=== PATIENT | male | born 1975 | race Two or more races ===

== ENCOUNTER 2018-07-07 10:33 | Inpatient (IN) | payer BC ==
[2018-07-07 14:31] VITALS: BMI 20.2
--- NOTE | 2018-07-07 17:02 | CONSULT ---
[facility] Psychiatric Consult - Data Date of interview: 07/07/18 Admission source: [facility] Identifying data: Patient is a 43 year old male, father of one, domiciled, and employed as a [employer]. This is one of multiple admissions for patient. Patient seeking detox for alcohol and cocaine dependence. Substance Abuse History: Alcohol/beer- 4-5 beers daily. Cocaine- 2 bags daily. CIgarette- 1/2 pack daily Psychiatric History: Sheet Tailer called to speak to patient in [facility] due to risk of suicidality. Patient denies h/o psychiatric hospitalization, outpatient care, and suicide attempt. Pt. is currently in the methadone program at the [facility] in the [place], [place]. Patient denies psychotic symptoms. No psychosis noted. Patient stated " I am currently going through a phase of feeeling down because i am using and i am here to get help." Patient reports poor sleep and a lost of 7-10 pounds in 2-3 months. He denies amotivation, anhedonia, and suicidal ideation. HIs protective factors is his mother, , and daughter. Patient denies urges or thoughts to hurt himself or others. Patient is stable for admission to detox. Physical/Sexual Abuse/Trauma History: denies. Mental Status Exam - Mental Status Exam Alert and Oriented to: Time, Place, Person Cognitive Function: Good Patient Appearance: Well Groomed Mood: Hopeful, Euthymic Affect: Appropriate, Mood Congruent Patient Behavior: Appropriate, Cooperative Speech Pattern: Clear, Appropriate Voice Loudness: Normal Thought Process: Intact, Goal Oriented Hallucinations: Denies Suicidal Ideation: Denies Homicidal Ideation: Denies Insight/Judgement: Poor Sleep: Poorly Appetite: Fair Muscle strength/Tone: Normal Gait/Station: Normal Psychiatric Findings - Problem List (Gates 1, 2,3) (1) Substance induced mood disorder Current Visit: Yes Status: Acute (2) Alcohol dependence Current Visit: Yes Status: Acute (3) Cocaine dependence Current Visit: Yes Status: Acute - Initial Treatment Plan Initial Treatment Plan: Psychoeducation provided. Detoxification in progress. Patient informed that melatonin 5mg will be ordered for insomnia.
--- NOTE | 2018-07-07 19:09 | HP ---
CIWA Score Nausea/Vomitin-No Nausea/No Vomiting Muscle Tremors: 4-Moderate,w/Arms Extend Anxiety: 2 Agitation: 0-Normal Activity Paroxysmal Sweats: 1-Minimal Palms Moist Orientation: 1-Uncertain about Date Tacttile Disturbances: 0-None Auditory Disturbances: 0-None Visual Disturbances: 0-None Headache: 2-Mild CIWA-Ar Total Score: 10 - Admission Criteria OASAS Guidelines: Admission for Medically Managed Detox: Requires at least one of the followin. CIWA greater than 12 2. Seizures within the past 24 hours 3. Delirium tremens within the past 24 hours 4. Hallucinations within the past 24 hours 5. Acute intervention needed for co occurring medical disorder 6. Acute intervention needed for co occurring psychiatric disorder 7. Severe withdrawal that cannot be handled at a lower level of care (continued vomiting, continued diarrhea, abnormal vital signs) requiring intravenous medication and/or fluids 8. Admission ROS [facility] - [facility] Chief Complaint: Having alcohol and Xanax withdrawal. Here for detox. Allergies/Adverse Reactions: Allergies Allergy/AdvReac Type Severity Reaction Status Date / Time No Known Allergies Allergy Verified 12/31/15 12:00 History of Present Illness: Alcohol use began at age 20. Cocaine use began at age 20. Nicotine use began at age 14. Heroin use began at age 16. Has been on Methadone maintenance x 11 years. Benzodiazepine use began at age 40. Denies hx of seizures, blackouts or overdose. Longest length of sobriety is 5 years. Search Terms: Nicole Mantilla, 1975 Search Date: 07/07/2018 07:01:46 PM The Drug Utilization Report below displays all of the controlled substance prescriptions, if any, that your patient has filled in the last twelve months. The information displayed on this report is compiled from pharmacy submissions to the Department, and accurately reflects the information as submitted by the pharmacies. This report was requested by: Lynn Arizmendi | Reference #: [id number] There are no results for the search terms that you entered. Exam Limitations: No Limitations - Ebola screening Have you traveled outside of the country in the last 21 days: No Have you had contact with anyone from an Ebola affected area: No Have you been sick,other than usual withdrawal symptoms: No Do you have a fever: No - Review of Systems Constitutional: Diaphoresis (Some sweating.), Changes in sleep (Difficulty falling asleep.) EENT: reports: Blurred Vision (Wears glasses) Respiratory: reports: No Symptoms reported Cardiac: reports: No Symptoms Reported GI: reports: Poor Appetite : reports: No Symptoms Reported Musculoskeletal: reports: No Symptoms Reported Integumentary: reports: No Symptoms Reported Neuro: reports: Headache (Mild) Endocrine: reports: Increased Thirst Hematology: reports: No Symptoms Reported Psychiatric: reports: Judgement Intact, Mood/Affect Appropiate, Orientated x3 ( Off date by 1 day), Anxious Patient History - Patient Medical History Hx Anemia: No Hx Asthma: No Hx Chronic Obstructive Pulmonary Disease (COPD): No Hx Cardiac Disorders: No Hx Hypertension: No Hx Hypercholesterolemia: No HX Cerebrovascular Accident: No Hx Seizures: No Hx Diabetes: No Hx Gastrointestinal Disorders: No Hx Genitourinary Disorders: No Hx Sexually Transmitted Disorders: No Hx Renal Disease (ESRD): No Hx Thyroid Disease: No Hx Human Immunodeficiency Virus (HIV): No (NEGATIVE HX) Hx Hepatitis C: Yes ("BUT INACTIVE") Hx Depression: Yes (NOT CURRENTLY ON MED) Hx Suicide Attempt: No (DENIES) Hx Bipolar Disorder: No Hx Schizophrenia: No - Patient Surgical History Past Surgical History: Yes Hx Orthopedic Surgery: Yes (Fx mandible IN 2008) Anesthesia Reaction: No - PPD History Previous Implant?: Yes Documented Results: Negative w/proof Implanted On Prior R Admission?: Yes Date: 01/02/16 PPD to be Administered?: Yes - Smoking Cessation Smoking history: Current every day smoker Have you smoked in the past 12 months: Yes Aproximately how many cigarettes per day: 10 Cigars Per Day: 0 Hx Chewing Tobacco Use: No Initiated information on smoking cessation: Yes 'Breaking Loose' booklet given: 07/07/18 - Substance & Tx. History Hx Alcohol Use: Yes Hx Substance Use: Yes Substance Use Type: Alcohol, Cocaine, Heroin Hx Substance Use Treatment: Yes (detox, rehab, currently on MMTP program) - Substances Abused Alcohol Route: Oral Frequency: Daily Amount used: 1 pint of [place], 12 -12oz cans of beer Age of first use: 20 Date of Last Use: 07/06/18 Alprazolam (Xanax) Route: Oral Frequency: 1-2 times per week Amount used: 2mg Age of first use: 40 Date of Last Use: 07/04/18 Cocaine Route: Injection Frequency: 3-6 times per week Amount used: $60 Age of first use: 20 Date of Last Use: 07/04/18 Family Disease History - Family Disease History Family Disease History: Diabetes: Mother (HTN & DEPRESSION), Other: Father, Mother Admission Physical Exam [facility] - Vital Signs Vital Signs: Vital Signs - 24 hr 07/07/18 14:27 Temperature 97.6 F Pulse Rate 64 Respiratory 18 Rate Blood Pressure 120/74 - Physical General Appearance: Yes: Mild Distress, Tremorous, Sweating, Anxious HEENTM: Yes: EOMI, Hearing grossly Normal, Normocephalic, BABITA, Pharynx Normal Respiratory: Yes: Chest Non-Tender, Lungs Clear, Normal Breath Sounds, No Respiratory Distress Neck: Yes: No masses,lesions,Nodules, Supple Breast: Yes: Breast Exam Deferred Cardiology: Yes: Regular Rhythm, Regular Rate, S1, S2, Other (Prolonged QT interval.) Abdominal: Yes: Flat, Soft, Increased Bowel Sounds, Other (Generalized tenderness upon paplation. No guarding or rebound tenderness.) Genitourinary: Yes: Within Normal Limits Back: Yes: Normal Inspection Musculoskeletal: Yes: full range of Motion, Gait Steady Extremities: Yes: Normal Capillary Refill, Normal Range of Motion, Non-Tender, Tremors (Gross tremors of hands upon extension) Neurological: Yes: cement block maker II-XII NML intact, Alert, Motor Strength 5/5, Normal Mood /Affect Integumentary: Yes: Normal Color, Dry, Warm Lymphatic: Yes: Within Normal Limits - Diagnostic (1) Alcohol dependence with uncomplicated withdrawal Current Visit: Yes Status: Acute (2) Methadone maintenance therapy patient Current Visit: Yes Status: Chronic (3) Prolonged Q-T interval on ECG Current Visit: Yes Status: Chronic (4) Cocaine dependence, uncomplicated Current Visit: Yes Status: Chronic (5) Nicotine dependence Current Visit: Yes Status: Chronic Qualifiers: Nicotine product type: cigarettes Substance use status: uncomplicated Qualified Code(s): F17.210 - Nicotine dependence, cigarettes, uncomplicated (6) Sedative, hypnotic or anxiolytic dependence with withdrawal, uncomplicated Current Visit: Yes Status: Acute Cleared for Admission [facility] - Detox or Rehab [facility] Level of Care: Medically Supervised Detox Regimen/Protocol: Librium [facility] Breath Alcohol Content Breath Alcohol Content: 0 Urine Drug Screen - Results Drug Screen Negative: No Urine Drug Screen Results: MTD-Methadone
[2018-07-07] MEDS ORDERED: ACETAMINOPHEN 325 MG TABLET (FP) PO PRN (19:25)
[2018-07-07] MEDS ORDERED: MENTHOL/PHENOL 1 EACH UD MM PRN (19:25)
[2018-07-07] MEDS ORDERED: chlordiazePOXIDE HCL 25 MG CAPSULE PO PRN (19:25)
[2018-07-07] MEDS ORDERED: LOPERAMIDE HCL 2 MG CAPSULE PO PRN (19:25)
[2018-07-07] MEDS ORDERED: MAG HYDROX/AL HYDROX/SIMETH 30 ML UNIT-DOSE CUP PO PRN (19:25)
[2018-07-07] MEDS ORDERED: chlordiazePOXIDE HCL 25 MG CAPSULE PO ONE (19:25)
[2018-07-07] MEDS ORDERED: NICOTINE POLACRILEX 2 MG GUM BUC PRN (19:25)
[2018-07-07] MEDS ORDERED: MAGNESIUM CITRATE 300 ML BOTTLE PO PRN (19:25)
[2018-07-07] MEDS ORDERED: MAGNESIUM HYDROX 2400MG/30ML ORAL SUSPENSION 30 ML CUP PO PRN (19:25)
[2018-07-07] MEDS ORDERED: MELATONIN 5 MG TABLETS PO PRN (22:00)
[2018-07-07] MEDS: chlordiazePOXIDE HCL 25 MG CAPSULE PO SCH (22:18)
[2018-07-07] MEDS: THIAMINE HCL 100 MG TABLET (FP) PO SCH (22:22)
[2018-07-08] MEDS ORDERED: METHADONE HCL 40 MG DISPERSABLE TABLET ONE (04:22)
[2018-07-08] MEDS ORDERED: METHADONE HCL 10 MG TABLET ONE (04:23)
[2018-07-08] MEDS: chlordiazePOXIDE HCL 25 MG CAPSULE PO SCH ×4 (05:42→22:39)
[2018-07-08] MEDS: METHADONE 80 MG, METHADONE 20 MG PO SCH (05:43)
[2018-07-08] MEDS ORDERED: METHADONE HCL 40 MG DISPERSABLE TABLET PO SCH (06:00)
[2018-07-08] MEDS: PRENATAL VITAMINS W/ FOLIC ACID TABLET (FP) PO SCH (10:13)
[2018-07-08] MEDS: NICOTINE 21 MG/24 HOURS TOPICAL PATCH TD SCH (10:14)
[2018-07-08 11:22] LABS: ALBUMIN 3.6 g/dl (3.4-5.0); ALK PHOS 73 U/L (45-117); ANION GAP 4 MMOL/L (8-16); BILIRUBIN,TOTAL 0.5 mg/dL (0.2-1); BLOOD UREA NITROGEN 14 mg/dL (7-18); CALCIUM 8.9 mg/dL (8.5-10.1); CHLORIDE 100 mmol/L (98-107); CO2 32 mmol/L (21-32); CREATININE 0.8 mg/dL (0.55-1.3); GLUCOSE,RANDOM 86 mg/dL (74-106); POTASSIUM 4.4 mmol/L (3.5-5.1); SGOT/AST 122 U/L (15-37); SGPT/ALT 44 U/L (13-61); SODIUM 136 mmol/L (136-145); TOT PROT 6.8 g/dl (6.4-8.2)
[2018-07-08 11:27] LABS: MCH 27.5 pg (25.7-33.7); MCHC 32.4 g/dl (32.0-35.9); MEAN CELL VOLUME 84.8 fl (80-96); MEAN PLT VOLUME 7.7 fl (7.5-11.1); PLATELET COUNT 301 K/MM3 (134-434); RBC 4.37 M/mm3 (4.00-5.60); WHITE BLOOD COUNT 6.9 K/mm3 (4.0-10.0)
--- NOTE | 2018-07-08 12:08 | PN ---
S CIWA - CIWA Score Nausea/Vomitin-No Nausea/No Vomiting Muscle Tremors: 3 Anxiety: 4-Mod. Anxious/Guarded Agitation: 4-Moderately Restless Paroxysmal Sweats: 1-Minimal Palms Moist Orientation: 0-Oriented Tacttile Disturbances: 0-None Auditory Disturbances: 0-None Visual Disturbances: 0-None Headache: 0-None Present CIWA-Ar Total Score: 12 [facility] Progress Note (SOAP) Subjective: ANXIETY,IRRITABILITY,INTERMITTENT SLEEP. Objective: 07/08/18 12:07 Vital Signs 07/08/18 07/08/18 06:20 11:02 Temperature 97.4 F L 97.5 F L Pulse Rate 49 L 53 L Respiratory 18 16 Rate Blood Pressure 104/62 109/65 Laboratory Tests 07/08/18 07/08/18 07/08/18 07:30 07:30 07:30 WBC 6.9 RBC 4.37 Hgb 12.0 Hct 37.0 MCV 84.8 MCH 27.5 MCHC 32.4 RDW 13.0 Plt Count 301 D MPV 7.7 Sodium 136 Potassium 4.4 Chloride 100 Carbon Dioxide 32 Anion Gap 4 L BUN 14 Creatinine 0.8 Creat Clearance w eGFR > 60 Random Glucose 86 Calcium 8.9 Total Bilirubin 0.5 AST 122 H ALT 44 Alkaline Phosphatase 73 Total Protein 6.8 Albumin 3.6 RPR Titer Nonreactive UA PENDING Assessment: 07/08/18 12:07 WITHDRAWAL SX Plan: CONTINUE DETOX INCREASE PO FLUIDS.
--- NOTE | 2018-07-08 12:20 | PN ---
[facility] Progress Note Note: Psychiatry Attending's note : Approached by the patient. Complaint : insomnia. Melatonin ineffective. Sleep hygiene discussed with patient. Hypnotic medications revisited. Mr Mantilla declines : trazodone, seroquel, tricyclics. Offered mirtazapine. Made aware of side effects/benefits. Agrees to take remeron 15 mg po hs. Will follow response.
[2018-07-08] MEDS: THIAMINE HCL 100 MG TABLET (FP) PO SCH (22:39)
[2018-07-08] MEDS: MIRTAZAPINE 15 MG TABLET (FP) PO SCH (22:40)
[2018-07-09] MEDS ORDERED: METHADONE HCL 40 MG DISPERSABLE TABLET ONE (04:21)
[2018-07-09] MEDS ORDERED: METHADONE HCL 10 MG TABLET ONE (04:22)
[2018-07-09] MEDS: METHADONE 80 MG, METHADONE 20 MG PO SCH (05:51)
[2018-07-09] MEDS: chlordiazePOXIDE HCL 25 MG CAPSULE PO SCH ×3 (05:51→17:10)
[2018-07-09] MEDS: NICOTINE 21 MG/24 HOURS TOPICAL PATCH TD SCH (10:14)
[2018-07-09] MEDS: PRENATAL VITAMINS W/ FOLIC ACID TABLET (FP) PO SCH (10:14)
--- NOTE | 2018-07-09 16:42 | PN ---
S CIWA - CIWA Score Nausea/Vomitin-No Nausea/No Vomiting Muscle Tremors: 2 Anxiety: 4-Mod. Anxious/Guarded Agitation: 2 Paroxysmal Sweats: 2 Orientation: 0-Oriented Tacttile Disturbances: 0-None Auditory Disturbances: 0-None Visual Disturbances: 0-None Headache: 0-None Present CIWA-Ar Total Score: 10 [facility] Progress Note (SOAP) Subjective: Anxious, interrupted sleep. Patient requested to see psychiatrist because his sleeping medication ineffective Objective: 07/09/18 16:37 Last Vital Signs Temp Pulse Resp BP Pulse Ox 97.0 F L 65 18 101/56 L 07/09/18 15:00 07/09/18 15:00 07/09/18 15:00 07/09/18 15:00 Laboratory Tests 07/08/18 07/08/18 07/08/18 07:30 07:30 07:30 WBC 6.9 RBC 4.37 Hgb 12.0 Hct 37.0 MCV 84.8 MCH 27.5 MCHC 32.4 RDW 13.0 Plt Count 301 D MPV 7.7 Sodium 136 Potassium 4.4 Chloride 100 Carbon Dioxide 32 Anion Gap 4 L BUN 14 Creatinine 0.8 Creat Clearance w eGFR > 60 Random Glucose 86 Calcium 8.9 Total Bilirubin 0.5 AST 122 H ALT 44 Alkaline Phosphatase 73 Total Protein 6.8 Albumin 3.6 RPR Titer Nonreactive Labs reviewed Assessment: 07/09/18 16:38 Withdrawal sxs Plan: Continue detox Encouraged PO water intake
--- NOTE | 2018-07-09 19:32 | EKG ---
Test Reason : Blood Pressure : / mmHG Vent. Rate : 057 BPM Atrial Rate : 057 BPM P-R Int : 158 ms QRS Dur : 086 ms QT Int : 476 ms P-R-T Axes : 000 021 034 degrees QTc Int : 463 ms SINUS BRADYCARDIA OTHERWISE NORMAL ECG NO PREVIOUS ECGS AVAILABLE Confirmed by MARAH COLVIN MD ([id number]) on 07/09/2018 7:32:28 PM Referred By: Confirmed By:MARAH COLVIN MD
[2018-07-09] MEDS: MIRTAZAPINE 15 MG TABLET (FP) PO SCH (22:08)
[2018-07-09] MEDS: THIAMINE HCL 100 MG TABLET (FP) PO SCH (22:08)
[2018-07-09] MEDS: chlordiazePOXIDE 5 MG CAPSULE PO SCH (22:09)
[2018-07-09] MEDS: IBUPROFEN 400 MG TABLET (FP) PO PRN (22:10)
[2018-07-10] MEDS ORDERED: METHADONE HCL 10 MG TABLET ONE (04:35)
[2018-07-10] MEDS ORDERED: METHADONE HCL 40 MG DISPERSABLE TABLET ONE (04:35)
[2018-07-10] MEDS: METHADONE 80 MG, METHADONE 20 MG PO SCH (06:55)
[2018-07-10] MEDS: chlordiazePOXIDE 5 MG CAPSULE PO SCH ×3 (06:55→17:41)
[2018-07-10] MEDS: NICOTINE 21 MG/24 HOURS TOPICAL PATCH TD SCH (10:32)
[2018-07-10] MEDS: PRENATAL VITAMINS W/ FOLIC ACID TABLET (FP) PO SCH (10:32)
[2018-07-10 14:16] LABS: URINE APPEARANCE CLEAR; URINE BILIRUBIN NEGATIVE (<2.0 mg/dL); URINE COLOR YELLOW; URINE GLUCOSE (UA) NEGATIVE (NEGATIVE); URINE KETONE NEGATIVE (NEGATIVE); URINE LEUK ESTERASE TRACE (NEGATIVE); URINE NITRITE NEGATIVE (NEGATIVE); URINE PROTEIN NEGATIVE (NEGATIVE)
[2018-07-10 14:36] LABS: CALCIUM OXALATE CRYSTALS RARE /hpf (NONE SEEN); EPI CELLS RARE /HPF (FEW); URINE BACTERIA RARE /hpf (NONE SEEN); URINE MUCUS RARE
[2018-07-10] MEDS: IBUPROFEN 400 MG TABLET (FP) PO PRN (15:15)
--- NOTE | 2018-07-10 17:26 | PN ---
[facility] Progress Note (SOAP) Subjective: interrupted sleep tremors Objective: 07/10/18 17:25 A & O x 3 Vital Signs Temperature 97.1 F L 07/10/18 13:24 Pulse Rate 82 07/10/18 13:24 Respiratory Rate 18 07/10/18 13:24 Blood Pressure 120/76 07/10/18 13:24 O2 Sat by Pulse Oximetry (%) Assessment: 07/10/18 17:25 withdrawal sx Plan: continue detox
[2018-07-10] MEDS: THIAMINE HCL 100 MG TABLET (FP) PO SCH (22:10)
[2018-07-10] MEDS: MIRTAZAPINE 15 MG TABLET (FP) PO SCH (22:10)
[2018-07-10] MEDS: chlordiazePOXIDE HCL 10 MG CAPSULE PO SCH (22:10)
[2018-07-11] MEDS: IBUPROFEN 400 MG TABLET (FP) PO PRN (02:11)
[2018-07-11] MEDS ORDERED: METHADONE HCL 40 MG DISPERSABLE TABLET ONE (04:26)
[2018-07-11] MEDS ORDERED: METHADONE HCL 10 MG TABLET ONE (04:27)
[2018-07-11] MEDS: METHADONE 80 MG, METHADONE 20 MG PO SCH (05:50)
[2018-07-11] MEDS: chlordiazePOXIDE HCL 10 MG CAPSULE PO SCH (05:50)
[2018-07-11 06:42] VITALS: BP 116/70; PULSE 62; TEMP 97.3
--- NOTE | 2018-07-11 11:06 | DS ---
[facility] Detox Discharge Summary Admission Date: 07/07/18 - History Present History: Alcohol Dependence, Cocaine Dependence, Sedative Dependence, MMTP Pertinent Past History: Alcohol dependence Opioid dependence on agonist Nicotine dependence Cocaine dependence Sedative dependence - Physical Exam Results Vital Signs: Vital Signs Temperature 97.3 F L 07/11/18 06:42 Pulse Rate 62 07/11/18 06:42 Respiratory Rate 18 07/11/18 06:42 Blood Pressure 116/70 07/11/18 06:42 O2 Sat by Pulse Oximetry (%) Pertinent Admission Physical Exam Findings: Withdrawal sxs Laboratory Tests 07/08/18 07/08/18 07/08/18 07:30 07:30 07:30 WBC 6.9 RBC 4.37 Hgb 12.0 Hct 37.0 MCV 84.8 MCH 27.5 MCHC 32.4 RDW 13.0 Plt Count 301 D MPV 7.7 Sodium 136 Potassium 4.4 Chloride 100 Carbon Dioxide 32 Anion Gap 4 L BUN 14 Creatinine 0.8 Creat Clearance w eGFR > 60 Random Glucose 86 Calcium 8.9 Total Bilirubin 0.5 AST 122 H ALT 44 Alkaline Phosphatase 73 Total Protein 6.8 Albumin 3.6 Urine Color Urine Appearance Urine pH Ur Specific Dawson Urine Protein Urine Glucose (UA) Urine Ketones Urine Blood Urine Nitrite Urine Bilirubin Urine Urobilinogen Ur Leukocyte Esterase Urine WBC (Auto) Urine RBC (Auto) Ur Epithelial Cells Calcium Oxalate Crystal Urine Bacteria Urine Mucus RPR Titer Nonreactive 07/10/18 11:10 WBC RBC Hgb Hct MCV MCH MCHC RDW Plt Count MPV Sodium Potassium Chloride Carbon Dioxide Anion Gap BUN Creatinine Creat Clearance w eGFR Random Glucose Calcium Total Bilirubin AST ALT Alkaline Phosphatase Total Protein Albumin Urine Color Yellow Urine Appearance Clear Urine pH 5.0 D Ur Specific Dawson 1.023 Urine Protein Negative Urine Glucose (UA) Negative Urine Ketones Negative Urine Blood Negative Urine Nitrite Negative Urine Bilirubin Negative Urine Urobilinogen 2.0 Ur Leukocyte Esterase Trace Urine WBC (Auto) <1 Urine RBC (Auto) 1 Ur Epithelial Cells Rare Calcium Oxalate Crystal Rare Urine Bacteria Rare Urine Mucus Rare RPR Titer Labs reviewed - Treatment Hospital Course: Detox Protocol Followed, Detoxed Safely, Responded well, Discharged Condition Good - Medication Discharge Medications: Ambulatory Orders NK [No Known Home Medication] 12/31/15 - Diagnosis (1) Alcohol dependence with uncomplicated withdrawal Status: Acute (2) Cocaine dependence Status: Chronic (3) Sedative, hypnotic or anxiolytic dependence with withdrawal, uncomplicated Status: Acute (4) Methadone maintenance therapy patient Status: Chronic (5) Nicotine dependence Status: Chronic Qualifiers: Nicotine product type: cigarettes Substance use status: uncomplicated Qualified Code(s): F17.210 - Nicotine dependence, cigarettes, uncomplicated - AMA Did Patient Leave Against Medical Advice: No (F/U with your PCP within 1-2 weeks )
== END 2018-07-11 09:41 | disposition left against medical advice (07) | DRG 894 ==
LOC: YASAS 10:33 → Y3N 19:22
PROC: HZ2ZZZZ Detoxification Services for Substance Abuse Treatment (ICD-10-PCS; principal; 2018-07-07)
DX: F10.230 Alcohol dependence with withdrawal, uncomplicated (principal); F11.20 Opioid dependence, uncomplicated; F14.20 Cocaine dependence, uncomplicated; F13.230 Sedative, hypnotic or anxiolytic dependence with withdrawal, uncomplicated; F17.210 Nicotine dependence, cigarettes, uncomplicated; F19.24 Other psychoactive substance dependence with psychoactive substance-induced mood disorder; I45.81 Long QT syndrome; B18.2 Chronic viral hepatitis C
CPT/HCPCS: 36415; 80053; 81003; 81015; 85027; 86593; 93005; 93010

== ENCOUNTER 2022-06-14 09:34 | Inpatient (IN) | payer OTHER ==
[2022-06-14 10:16] VITALS: BMI 24.4
[2022-06-14] MEDS ORDERED: LOPERAMIDE HCL 2 MG CAPSULE PO PRN (10:58)
[2022-06-14] MEDS ORDERED: DICYCLOMINE HCL 10 MG CAPSULE PO PRN (10:58)
[2022-06-14] MEDS ORDERED: MAGNESIUM HYDROX 2400MG/30ML ORAL SUSPENSION 30 ML CUP PO PRN (10:58)
[2022-06-14] MEDS ORDERED: ACETAMINOPHEN 325 MG TABLET (FP) PO PRN ×2 (10:58)
[2022-06-14] MEDS ORDERED: ONDANSETRON *ODT* 4 MG TABLET SL PRN (10:58)
[2022-06-14] MEDS ORDERED: BISMUTH SUBSALICYLATE 524 MG/30 ML PO PRN (10:58)
[2022-06-14] MEDS ORDERED: NALOXONE HCL (KLOXXADO) 8 MG SPRAY NS PRN (10:58)
[2022-06-14] MEDS ORDERED: BENZOCAINE/MENTHOL (CHLORASEPTIC ) LOZENGE MM PRN (10:58)
[2022-06-14] MEDS ORDERED: MAGNESIUM CITRATE 300 ML BOTTLE PO PRN (10:58)
[2022-06-14] MEDS ORDERED: NICOTINE 10 MG CARTRIDGE (INHALER) IH PRN (10:58)
[2022-06-14] MEDS ORDERED: IBUPROFEN 400 MG TABLET (FP) PO PRN (10:58)
[2022-06-14] MEDS ORDERED: MAG HYDROX/AL HYDROX/SIMETH 30 ML UNIT-DOSE CUP PO PRN (10:58)
[2022-06-14] MEDS: chlordiazePOXIDE HCL 25 MG CAPSULE PO SCH ×3 (12:31→22:31)
[2022-06-14] MEDS: methaDONE HCL 40 MG DISPERSABLE TABLET PO SCH (12:31)
[2022-06-14] MEDS: PRENATAL VITAMINS W/ FOLIC ACID TABLET (FP) PO SCH (12:36)
[2022-06-14] MEDS: NICOTINE 7 MG/24 HOURS TOPICAL PATCH TD SCH (12:36)
[2022-06-14 14:52] LABS: HEMATOCRIT 37.1 % (35.4-49); MCH 27.1 pg (25.7-33.7); MCHC 32.4 g/dl (32.0-35.9); MEAN CELL VOLUME 83.8 fl (80-96); MEAN PLT VOLUME 8.2 fl (7.5-11.1); PLATELET COUNT 380 10^3/uL (134-434); RBC 4.43 M/mm3 (4.00-5.60); RDW 13.1 % (11.9-15.9); WHITE BLOOD COUNT 6.1 K/mm3 (4.0-10.0)
[2022-06-14 15:22] LABS: BILIRUBIN,TOTAL 0.6 mg/dL (0.2-1); CREATININE 0.9 mg/dL (0.55-1.3); TOT PROT 7.4 g/dl (6.4-8.2)
[2022-06-14] MEDS: THIAMINE HCL 100 MG TABLET (FP) PO SCH (22:30)
[2022-06-14] MEDS: MELATONIN 5 MG TABLETS PO SCH (22:30)
[2022-06-15] MEDS: chlordiazePOXIDE HCL 25 MG CAPSULE PO SCH ×4 (06:34→22:27)
[2022-06-15] MEDS: methaDONE HCL 40 MG DISPERSABLE TABLET PO SCH (06:34)
[2022-06-15] MEDS: PRENATAL VITAMINS W/ FOLIC ACID TABLET (FP) PO SCH (10:20)
[2022-06-15] MEDS: NICOTINE 7 MG/24 HOURS TOPICAL PATCH TD SCH (10:21)
[2022-06-15] MEDS: MELATONIN 5 MG TABLETS PO SCH (22:26)
[2022-06-15] MEDS: THIAMINE HCL 100 MG TABLET (FP) PO SCH (22:27)
[2022-06-16] MEDS: chlordiazePOXIDE HCL 25 MG CAPSULE PO SCH ×4 (05:58→22:13)
[2022-06-16] MEDS: methaDONE HCL 40 MG DISPERSABLE TABLET PO SCH (05:59)
[2022-06-16] MEDS: NICOTINE 7 MG/24 HOURS TOPICAL PATCH TD SCH (10:33)
[2022-06-16] MEDS: PRENATAL VITAMINS W/ FOLIC ACID TABLET (FP) PO SCH (10:33)
[2022-06-16] MEDS: METHOCARBAMOL 500 MG TABLET PO PRN (22:12)
[2022-06-16] MEDS: MELATONIN 5 MG TABLETS PO SCH (22:13)
[2022-06-16] MEDS: THIAMINE HCL 100 MG TABLET (FP) PO SCH (22:14)
[2022-06-17] MEDS: IBUPROFEN 600 MG TABLET (FP) PO PRN ×2 (02:31→15:59)
[2022-06-17] MEDS: chlordiazePOXIDE HCL 10 MG CAPSULE PO SCH ×4 (05:22→22:26)
[2022-06-17] MEDS: methaDONE HCL 40 MG DISPERSABLE TABLET PO SCH (05:22)
[2022-06-17] MEDS: NICOTINE 7 MG/24 HOURS TOPICAL PATCH TD SCH (10:39)
[2022-06-17] MEDS: PRENATAL VITAMINS W/ FOLIC ACID TABLET (FP) PO SCH (10:39)
[2022-06-17] MEDS ORDERED: SUVOREXANT 10 MG TABLET PO PRN (22:00)
[2022-06-17] MEDS: METHOCARBAMOL 500 MG TABLET PO PRN (22:25)
[2022-06-17] MEDS: MELATONIN 5 MG TABLETS PO SCH (22:25)
[2022-06-17] MEDS: THIAMINE HCL 100 MG TABLET (FP) PO SCH (22:25)
[2022-06-18] MEDS: IBUPROFEN 600 MG TABLET (FP) PO PRN ×2 (01:23→20:35)
[2022-06-18] MEDS: methaDONE HCL 40 MG DISPERSABLE TABLET PO SCH (05:48)
[2022-06-18] MEDS: chlordiazePOXIDE HCL 10 MG CAPSULE PO SCH ×2 (05:48→17:34)
[2022-06-18] MEDS: PRENATAL VITAMINS W/ FOLIC ACID TABLET (FP) PO SCH (10:11)
[2022-06-18] MEDS: NICOTINE 7 MG/24 HOURS TOPICAL PATCH TD SCH (10:11)
[2022-06-18 21:42] VITALS: RESP 16
[2022-06-18] MEDS: MELATONIN 5 MG TABLETS PO SCH (22:16)
[2022-06-18] MEDS: THIAMINE HCL 100 MG TABLET (FP) PO SCH (22:16)
[2022-06-19] MEDS ORDERED: chlordiazePOXIDE HCL 10 MG CAPSULE PO ONE (05:00)
[2022-06-19] MEDS: methaDONE HCL 40 MG DISPERSABLE TABLET PO SCH (05:32)
[2022-06-19 06:36] VITALS: TEMP 97.7
[2022-06-19 09:10] VITALS: BP 98/59; PULSE 75
[2022-06-19] MEDS: PRENATAL VITAMINS W/ FOLIC ACID TABLET (FP) PO SCH (10:14)
[2022-06-19] MEDS: NICOTINE 7 MG/24 HOURS TOPICAL PATCH TD SCH (10:14)
== END 2022-06-19 12:25 | disposition home or self-care (01) | DRG 773 ==
LOC: YASAS 09:34 → Y3N 11:07
PROVIDERS: ADMIT Allergy & Immunology; ATTEND Surgery
PROC: HZ2ZZZZ Detoxification Services for Substance Abuse Treatment (ICD-10-PCS; principal; 2022-06-14)
DX: F10.230 Alcohol dependence with withdrawal, uncomplicated (principal); F13.230 Sedative, hypnotic or anxiolytic dependence with withdrawal, uncomplicated; F11.20 Opioid dependence, uncomplicated; F14.20 Cocaine dependence, uncomplicated; F17.210 Nicotine dependence, cigarettes, uncomplicated; F19.24 Other psychoactive substance dependence with psychoactive substance-induced mood disorder; F32.A Depression, unspecified; F41.9 Anxiety disorder, unspecified
CPT/HCPCS: 36415; 80053; 85027; 86780; 93005; 93010; C9803-CS; U0003; U0005